=== PATIENT | female | born 1960 | race Asian ===

== ENCOUNTER 2020-12-15 15:46 | Emergency (ER) | payer OTHER, SELFPAY ==
[2020-12-15 15:58] VITALS: BP 150/87; PULSE 80; RESP 18; TEMP 36.9; O2SAT 98; BMI 21.4
--- NOTE | 2020-12-15 16:15 | ED_ITS ---
HPI - General Adult General Chief complaint: General Medical Stated complaint: swollen tonsils Time Seen by Provider: 12/15/20 16:07 Source: patient Mode of arrival: ambulatory History of Present Illness HPI narrative: 60-year-old female with no significant past medical history presenting to the ED complaining of swollen tonsils/lymph nodes x6 weeks. Reports has been unable to see her PCP. Denies fever, chills, difficulty/pain with swallowing, drooling, ear pain, nausea/vomiting. Patient works at [employer] thus has COVID exposure Onset (ago): week(s) Related Data Previous Rx's Medication Instructions Recorded amoxicillin-pot clavulanate 1 tab PO Q12H 7 Days #14 tab 12/15/20 [Augmentin] Allergies Allergy/AdvReac Type Severity Reaction Status Date / Time No Known Allergies [NKA] Allergy Verified 12/15/20 16:00 Review of Systems Review of Systems: Constitutional: No Weight loss, No Fever, No Chills ENT/Mouth: No Ear Pain, No Nasal Congestion, No Sinus Pain, No Hoarseness, + sore throat, No Rhinorrhea, No Swallowing Difficulty Cardiovascular: No Chest Pain, No SOB Respiratory: No Cough, No Sputum, No Wheezing Gastrointestinal: No Nausea, No Vomiting, No Diarrhea Skin: No Skin Lesions, No rash Yes all other systems are reviewed and are negative PMFSH Past Medical History Attestation statement: The following information was validated with the patient. Source: nursing notes reviewed Medical History (Updated 12/15/20 @ 16:22 by PAOLO Santizo) No known health problems Social History Social History Advance Directives: No Advance Directives Information Provided: No Physical Exam Vital Signs: Vital Signs: Last Vital Signs Temp 98.4 F 12/15/20 15:58 Pulse 80 12/15/20 15:58 Resp 18 12/15/20 15:58 BP 150/87 H 12/15/20 15:58 Pulse Ox 98 12/15/20 15:58 Body Mass Index 21.4 Const: General: cooperative, healthy appearing and comfortable Orientation/consciousness: patient oriented x3 Limitations: no limitations HENMT: Head: Yes normal to inspection Ears: hearing grossly normal bilaterally and TM's normal bilaterally General nose exam: Normal external nose present and Normal nares present Face and sinus: Yes normal facial exam Mouth: Normal oral and palatal mucosa present Throat: Yes uvula midline, Yes abnormal tonsil (Tonsils with mild swelling and exudates), No peritonsillar mass, No uvula laterally displaced and No uvular edema Eyes: General: appearance normal, both eyes and all related structures EOM: EOMs intact bilaterally Neck: Neck: Yes normal visual inspection, Yes supple, No anterior neck swelling and Yes lymphadenopathy (Submandibular/anterior cervical) Resp: Effort & Inspection: normal respiratory effort, no stridor and not tachypneic Auscultation: clear to auscultation bilaterally Cardio: Rate: regular rate GI: Inspection: Yes normal to inspection Skin: Rashes: no rashes Wounds: no wounds Neuro: General: patient oriented x3 Gait exam (Neuro): Normal gait present Extrem: General: Yes normal to inspection Course Course Course Narrative: Monospot, rapid strep, and COVID-19 negative Will discharge patient with Augmentin due to physical exam findings Medical Decision Making MDM Narrative Medical decision making narrative: 60-year-old female with no significant past medical history presenting to the ED complaining of swollen tonsils/lymph nodes x6 weeks. On exam VS as, NAD/well-appearing, tonsils with mild swelling and exudates noted. Lymphadenopathy appreciated. Concern for strep pharyngitis. Due to length of time concerned for mono/COVID-19 with hospital exposure Plan: Rapid strep, COVID-19, Monospot Lab Data Labs: Lab Results 12/15/20 12/15/20 Range/Units 16:20 16:25 COVID-19 (KEVYN) Negative (Negative) COVID-19 Clin Com See Note Monoscreen Negative (Negative) Discharge Plan Discharge Clinical Impression: Pharyngitis Qualifiers: Pharyngitis/tonsillitis etiology: unspecified etiology Qualified Code(s): J02.9 - Acute pharyngitis, unspecified Patient Disposition: Home, Self-Care Instructions: Pharyngitis (ED) Additional Instructions: Clinically you have strep throat. Augmentin is an antibiotic, take as prescribed. Make sure your staying hydrated at. Should follow up with the ENT doctor for further evaluation as well as her primary care doctor. Take Tylenol and Motrin at for pain/. If her symptoms persist or worsen, your unable drink, have difficulty swallowing/breathing, or swelling return to ED Prescriptions: New amoxicillin-pot clavulanate [Augmentin] 875-125 mg tablet 1 tab PO Q12H 7 Days Qty: 14 RF: 0 Referrals: Edwar Elena [Physician] - 5 days
[2020-12-15 16:54] LABS: COVID-19 Test Negative (Negative)
[2020-12-15 16:56] LABS: Monotest Negative (Negative)
== END 2020-12-15 17:29 | disposition home or self-care (01) ==
PROVIDERS: Physician Assistant; Emergency Provider Internal Medicine; PCP Internal Medicine
DX: J03.90 Acute tonsillitis, unspecified (principal); Z20.822 Contact with and (suspected) exposure to COVID-19; Z79.899 Other long term (current) drug therapy
CPT/HCPCS: 36415; 86308; 87071; 87635; 87880; 99283